=== PATIENT | female | born 1985 | race American Indian/Alaskan Native ===

== ENCOUNTER 2018-05-19 06:46 | Observation (INO) | payer OTHER ==
[2018-05-18 08:42] VITALS: BMI 22.7
[2018-05-19] MEDS ORDERED: Propofol 10 mg/ml Inj (20 ML) ONE ×2 (07:33→13:56)
[2018-05-19] MEDS ORDERED: ePHEDrine 50 mg/ml Inj ONE (07:35)
[2018-05-19] MEDS ORDERED: Midazolam 2 MG/2 ML VIAL ONE ×2 (07:35→13:56)
[2018-05-19] MEDS ORDERED: Rocuronium 10 mg/ml (5 ml) ONE ×2 (07:36→13:57)
[2018-05-19] MEDS ORDERED: Succinylcholine 200 mg/10 ml Inj IV ONE ×2 (07:36→13:57)
[2018-05-19] MEDS ORDERED: Lidocaine 4% (Laryng-O-Jet) Kit MM ONE ×2 (07:37→13:57)
[2018-05-19] MEDS: Bupivacaine HCl 0.5% PF (30 ml) Inj ONE ×2 (07:45→10:05)
[2018-05-19] MEDS ORDERED: Lactated Ringer's 1,000 ML IV ONE ×5 (07:46→10:10)
[2018-05-19 08:08] LABS: BASO % 0.7 % (0.0-2.0); EOS # 0.1 K/uL (0.0-0.7); EOS % 2.2 % (0.0-4.0); HEMOGLOBIN 11.1 g/dL (12.0-16.0); LYMPH # 2.4 K/uL (1.0-4.3); LYMPH % 41.8 % (20.0-40.0); MEAN CELL VOLUME 92.8 fl (81.0-99.0); MEAN CORPUSCULAR HEMOGLOBIN 30.1 pg (27.0-31.0); MEAN CORPUSCULAR HGB CONC 32.5 g/dL (33.0-37.0); MEAN PLATELET VOLUME 9.8 fl (7.2-11.7); MONO # 0.5 K/uL (0.0-0.8); MONO % 9.5 % (0.0-10.0); NEUT # 2.6 K/uL (1.8-7.0); NEUT % 45.8 % (50.0-75.0); NRBC % 0.1 % (0.0-0.0); RBC 3.7 Mil/uL (3.80-5.20); WHITE BLOOD COUNT 5.7 K/uL (4.8-10.8)
[2018-05-19] MEDS ORDERED: Dexamethasone 4 mg/1 ml ONE ×2 (09:56→14:53)
[2018-05-19] MEDS ORDERED: Desflurane Inhalation Anesthetic Liq (240 ml) ONE (10:09)
[2018-05-19] MEDS ORDERED: DiphenhydrAMINE 50 mg/ml Inj IVP PRN (13:16)
--- NOTE | 2018-05-19 13:20 | PCM.OP ---
Operative Report - Operative Report Date of Surgery/Procedure: 05/19/18 Time of Surgery/Procedure: 09:00 Surgeon: Dr. Lance Martínez Commercial Retoucher: Dr. Eligio Bateman Anesthesia/Sedation: general/Dr. Bain Pre-Operative Diagnosis: abdominal pain and endometriosis Post-Operative Diagnosis: same Indication for Surgery: as above Operative Findings: as above Procedure/Operation Description: 1-Excision perirectal endometriosis (Times two) 2-Excision rectal endomeritosis 3-Appendectomy Brief History: This 32 year woman was already brought to the OR by Dr. Bateman when he noted extensive intestinal involvement with endometriosis and he requested an intraoperative surgical assistance. Description of the Procedure: The patient had already been brought to the OR by Dr. Bateman (separate dictation). after taking control of the robotic console the fist lesion in the perirectal space was incised with electrocautery and using blunt and sharp dissection it was excised en-bloc and sent to pathology separately. The second lesion was excised in a similar fashion. The third lesion, which was exceedingly larger was excised in a similar fashion and these ere marked and sent to pathology separately. The appendix was then retracted anteriorly and the mesentery was dessicated with electocautery monopolar thermal energy to the base. The base was ligated with 3-0 endoloop, transected and sent to pathology separately. Hemostasis was demed adeqaute and the operation was then turned over to Dr. Bateman (separate dictation). Estimated Blood Loss: 100 cc Complications: none Specimen: 1-Perirectal endometriosis (times two) 2-Deep rectal endometriosis 3-Appendix Discharge & Condition: stable
[2018-05-19] MEDS ORDERED: Lactated Ringer's 1,000 ML IV SCH (13:30)
[2018-05-19] MEDS ORDERED: Oxycodone/Acetaminophen 5/325 mg Tab PO PRN (13:37)
[2018-05-19] MEDS: HYDROmorphone 0.5 mg/0.5 ml ISec IVP PRN ×5 (13:45→22:25)
[2018-05-19] MEDS ORDERED: Sodium Chloride 0.9% 1,000 ML IV SCH (13:45)
--- NOTE | 2018-05-19 15:37 | OP ---
PROCEDURE DATE: 05/19/18 SURGEON: Eligio Bateman MD EXPERIMENTAL TECHNICIAN: Lance Martínez MD ANESTHESIOLOGIST: MD Herminia Bain TYPE OF ANESTHESIA: General endotracheal. PREOPERATIVE DIAGNOSES: 1. Incapacitating pelvic pain. 2. Incapacitating abdominal pain. 3. Abnormal uterine bleeding. 4. History of pelvic endometriosis. 5. History of previously failed medical and surgical therapy. 6. Gastrointestinal and genitourinary symptoms. 7. Rule out interstitial cystitis. 8. History of severe endometriosis and pelvic adhesions 9: bilateral ovarian cysts POSTOPERATIVE DIAGNOSES: 1. Incapacitating pelvic pain. 2. Incapacitating abdominal pain. 3. Abnormal uterine bleeding. 4. History of pelvic endometriosis. 5. History of previously failed medical and surgical therapy. 6. History of severe endometriosis and pelvic adhesions. 7. Gastrointestinal and genitourinary symptoms. 8. bilateral ovarian endometriomas 9. Mild ureteral distention. 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 Exam under anesthesia. 2. Video assisted hysteroscopy. 3. Cystoscopy. 4. Bilateral ureteral catheterization and injection of IC-Green dye. 5. Robotic da Karo operative laparoscopy. 6. Treatment of endometriosis. 7. Excision of endometriosis. 8. Bilateral ureterolysis. 9. Bilateral ovariolysis. 10: bilateral ovarian cystectomy 11: bilateral temporary ovariopexy raccuia : appendectomy excision rectal endo to be dictated separately COMPLICATIONS: None. SAMPLES SENT: 1. Left Uterosacral l endometriosis. 2. Left periureteral endometriosis. 3. Right periureteral endometriosis. 4. Right uterosacral endometriosis. 5. Left and right ovarian fossa endometriosis. 6. Iliac endometriosis. 7. Posterior cervical endometriosis. 8. Rectal endometriosis, anterior. 9) Cul de sac endometriosis 10) right and left ovarian cyst 11) appendix INDICATION FOR THE PROCEDURE AND CONSENT: The patient had a long history of pelvic pain, dysmenorrhea, dyspareunia, abdominal pain, and bladder pain. The patient had been thoroughly evaluated and counseled regarding the pros and cons of the procedure, the reasonable alternatives, and possible complications. She understood and accepted the risks involved. Literature was provided to the patient. The patient was understanding and given her history and per surgical exam, she was at high risk in an average patient. She accepted all the risks involved, and all the questions had been answered to her satisfaction. FINDINGS OF SURGERY: Genitalia: Normal external genitalia, cervix without lesion and polyps. Hysteroscopy: Hysteroscopy shows a clear uterine cavity with no polyps or masses noticed. Cystoscopy: The cystoscopy was performed to rule out endometriosis and also any interstitial cystitis and also injury. The bladder was normal with no evidence of stone, trigonitis, or cystitis. A positive jet flow was identified in both ureters. Laparoscopy: The upper abdomen appeared to be normal. Gallbladder was normal. Liver edges appeared to be normal. Ascending colon and transverse were normal. There was evidence of adhesions, fibrosis, and endometriosis of the rectovaginal and pelvic sidewalls. Ovaries were enlarged with cysts and adherent to each other and to the back of the uterus. The appendix appeared to be abnormal and affected by endometriosis. Both fallopian tubes appeared to be patent, although there was evidence of inflammation on the serosal surface of both fallopian tubes, and there was slight conglutination of both fimbriated ends although they both appeared to be functional. There was also evidence of mild hydroureters. DESCRIPTION OF THE PROCEDURE: Initiation of the case: After adequate anesthesia was obtained, the patient was placed in the dorsal lithotomy position, and with extreme care, placement of the patient with hyperextension and hyperflexing of the hips. At this point, the patient was prepped and draped. The surgeon was gowned and gloved. A timeout was taken according to the hospital procedure and the procedure was started. At this point, we performed cystoscopy, bilateral ureteral catheterization. A cystoscope was inserted into the bladder under direct visualization and the bladder was visualized. The bladder was free of lesions and tumors. There was no evidence of interstitial cystitis, and there was only mild amount of trigonitis. At this point, both ureters were identified and appeared to be in their normal anatomical position. At this point, utilizing an open 5-Maori open-ended catheter, the left ureter was catheterized all the way to the distal ureter, and 5 mL of IC-Green was injected into this ureter. Similarly, the contralateral ureter was catheterized all the way to the distal ureter, and 5 mL of IC-Green was injected into the distal ureter. At this point, the stents were removed, and the cystoscope was removed, and the 16-Maori Degroot was inserted into the bladder. At this point, we proceeded with a hysteroscopy. A speculum was placed into vagina, and the anterior lip of the cervix was grasped. The cervix was dilated, and a hysteroscope was inserted into the cavity. The cavity appeared to be of normal size with no evidence of polyps, cysts, adenomyosis, or fibroids. At this point, we proceeded with placement of a trocar and docking of the da Karo Xi robot. The surgeon was re-gowned and gloved, and open laparoscopy was performed by making incision in the umbilicus and the fascia was incised. The peritoneum was entered in a blunt fashion, and the cannula was inserted under direct visualization. The abdomen was insufflated, and under direct visualization, three additional ports were inserted in the left upper quadrant, left mid quadrant, and right upper quadrant. At this point, the da Karo Xi robot was brought into the field and docked, and the instruments were inserted under direct visualization. All this with extreme care not to injure the bowel or another area. As per dictation, the upper abdomen appeared to be normal with no evidence of any lesions. At this point, we proceeded with a left ureterolysis. The ureter appeared to be dilated and was clearly identified utilizing IC-Green fluorescent technology. Anesthesia was made in the peritoneum at the top of the pelvic brim, and the incision was then carried down all the way opening the peritoneum all the way down from the pelvic brim, all the way down to the ovarian fossa, extending the incision below the ovary. It was a progressive dissection where the ureter was progressively lateralized and peritoneum was medialized, thus freeing the ureter all the way down to the cross of the uterine vessels. After this was done, the ureter was freed and lateralized, and a larger peritoneum which had been opened, was excised, and sent to pathology. At this point, with the aid of very slow process, I was able to elevate the ovary and proceed with ovariolysis. At this point, we proceeded with a left ovariolysis. The left ovary was adherent to the posterior aspect of the uterus. It was gently dissected in a step by step way. It was peeled off, the ovarian fossa, andan area of extensive fibrosis and endometriosis was exposed. the rleft ovary was then pexed to the abdominal wall and At this point, we proceeded with a right ureterolysis. The ureter was identified again utilizing fluorescent technology on the right hand side and retroperitoneal space was entered, and a full dissection was performed,entering the retroperitoneal space and dissecting the ureter, removing the ureter laterally and the peritoneum medially. A full dissection was performed all the way down to the ovarian fossa and the crossing of the uterine arteries. An area of peritoneum containing endometriosis was dissected and sent to Pathology. At this point, we proceeded with a right ovariolysis. The right ovary was adherent to the peritoneum. It was gently elevated progressively, and dissected off from the peritoneal area. All this done with extreme care to preserve vascularization to the ovary. the right ovary was then pexed to the abdominal wall and At this point, we proceeded with treatment of endometriosis and excision of endometriosis. On the left hand side, fibrosis, especially in the left ovarian fossa was excised. In a very progressive step by step fashion, we dissected off fibrosis containing endometriosis and freed up the whole area. The ureters which had been lateralized. Areas of fibrosis and endometriosis were also identified in the posterior cul-de-sac and in the rectovaginal space which was also affected with endometriosis and fibrosis. At this point, we proceeded with the excision of perirectal endometriosis. The rectovaginal area had significant fibrosis and additional endometriosis was dissected from the posterior aspect of the uterus, and the rectovaginal space was entered at the level of the peritoneal reflection. All this done making sure that no damage to the rectum was performed. At this point, endometriosis was also excised from the right uterosacral area which also was affected by fibrosis and endometriosis. At this point, we proceeded with left ovarian cystectomy the cyst wall was gently peeled fro m the ovary without damaging any vascular supply and with minimal use of coagulation. the cyst was set to pathology At this point, we proceeded with right ovarian cystectomy the cyst wall was gently peeled fro m the ovary without damaging any vascular supply and with minimal use of coagulation. the cyst was set to pathology At this point, it was checked for hemostasis and appeared to be excellent. Both fallopian tubes were in good condition and patent. . At this point the console was handed over to Dr. Martínez from General surgery who proceeded with excision perirectal endometriosis (Times two), excision rectal endomeritosis, appendectomy procedure. He will dictate that separately. After he was done we checked for hemostasis and organ integrity and all was normal. At this point, the da Karo Xi robot was removed. The abdomen was desufflated, and the incisions were closed in layers with 0 PDS for the fascia and 4-0 Monocryl for the skin. At the end of the procedure, all instrument counts were correct. The patient tolerated the procedure well and was taken to the recovery room in excellent condition. Bhavana RODRÍGUEZ, Eligio SAINI
[2018-05-19] MEDS: ceFAZolin IV 2 gm in Dextrose 2 GM/50 ML BAG IVPB SCH (17:22)
[2018-05-20] MEDS: ceFAZolin IV 2 gm in Dextrose 2 GM/50 ML BAG IVPB SCH ×2 (00:45→09:02)
[2018-05-20] MEDS: HYDROmorphone 0.5 mg/0.5 ml ISec IVP PRN (02:55)
[2018-05-20 07:41] LABS: HEMOGLOBIN 9.5 g/dL (12.0-16.0); MEAN CELL VOLUME 89.7 fl (81.0-99.0); MEAN CORPUSCULAR HEMOGLOBIN 29.4 pg (27.0-31.0); MEAN CORPUSCULAR HGB CONC 32.8 g/dL (33.0-37.0); RBC 3.23 Mil/uL (3.80-5.20); RED CELL DISTRIBUTION WIDTH 14.7 % (11.5-14.5); WHITE BLOOD COUNT 9.2 K/uL (4.8-10.8)
[2018-05-20 07:53] LABS: BLOOD UREA NITROGEN 7 mg/dl (7-17); CALCIUM 8.1 mg/dL (8.4-10.2); GFR NON-AFRICAN AMERICAN > 60
--- NOTE | 2018-05-20 09:12 | CP.PCM.PN ---
Subjective - Date & Time of Evaluation Date of Evaluation: 05/20/18 Time of Evaluation: 09:20 - Subjective Subjective: Patient complaining of pain, bloating, belching. Denies n/v. Not passing gas, has not voided since rousseau d/c'd Objective - Vital Signs/Intake and Output Vital Signs (last 24 hours): Temp Pulse Resp BP Pulse Ox 98.7 F 87 20 105/65 100 05/20/18 05:00 05/20/18 05:00 05/20/18 05:00 05/20/18 05:00 05/20/18 05:00 - Medications Medications: Current Medications Hydromorphone HCl (Dilaudid) 0.5 mg IVP Q10M PRN PRN Reason: Pain, moderate (4-7) Last Admin: 05/19/18 14:50 Dose: 0.5 mg Hydromorphone HCl (Dilaudid) 0.5 mg IVP Q4H PRN PRN Reason: Pain, severe (8-10) Last Admin: 05/20/18 02:55 Dose: 0.5 mg Lactated Ringer's (Lactated Ringer's) 1,000 mls @ 125 mls/hr IV .Q8H FIORDALIZA Last Admin: 05/19/18 15:30 Dose: 200 mls Cefazolin Sodium/Dextrose (Ancef Iv 2 Gm Duplex) 2 gm in 50 mls @ 50 mls/hr I VPB Q8H FIORDALIZA; Protocol Stop: 05/20/18 09:59 Last Admin: 05/20/18 09:02 Dose: 50 mls/hr Ondansetron HCl (Zofran Inj) 4 mg IVP Q6 PRN PRN Reason: Nausea/Vomiting Last Admin: 05/19/18 17:00 Dose: 4 mg Oxycodone/Acetaminophen (Percocet 5/325 Mg Tab) 1 tab PO Q4 PRN PRN Reason: Pain, moderate (4-7) Stop: 05/22/18 13:38 Last Admin: 05/20/18 09:11 Dose: 1 tab - Labs Labs: 05/20/18 07:20 05/20/18 07:20 - GI/Abdominal Exam GI & Abdominal Exam: Distended (mild distended, incisions intact, generalized tenderness), Guarding, Tenderness Assessment and Plan (1) Endometriosis Assessment & Plan: POD#1 s/p robotic assisted resection of endometriosis and appendectomy will add toradol and protonix encourage OOB, ambulation d/w Dr. Bateman, agrees with above addendum: by 2pm, patient is feeling much better, distension improving, pain now controlled, voided x 3. d/w Dr. Bateman, will d/c patient home, f/u 10-14 days call for appt, call for any increased pain, bleeding, difficulty voiding Status: Acute
[2018-05-20 09:22] VITALS: RESP 18
[2018-05-20] MEDS ORDERED: Pantoprazole 40 mg EC Tab PO SCH (09:30)
[2018-05-20 12:47] VITALS: BP 119/71; PULSE 76; TEMP 98.6; O2SAT 98
== END 2018-05-20 19:00 | disposition home or self-care (01) ==
LOC: H.OPSURG 06:46 → H.PEDS 13:44
PROVIDERS: ADMIT Obstetrics & Gynecology Reproductive Endocrinology; ATTEND Obstetrics & Gynecology Reproductive Endocrinology
DX: N80.0 Endometriosis of uterus (principal); N83.12 Corpus luteum cyst of left ovary; N83.11 Corpus luteum cyst of right ovary; N80.1 Endometriosis of ovary; N80.3 Endometriosis of pelvic peritoneum; N80.5 Endometriosis of intestine; N93.9 Abnormal uterine and vaginal bleeding, unspecified
CPT/HCPCS: 36415; 44970; 58563; 58662; 80048; 85025; 85027; 86850; 86900; 88304; 88305; 96365; 96366; 96372; 96375; C1729; G0378; J0330; J0690; J1100; J1170; J1885; J2001; J2250; J2405; J2704; J2765; J3010; J7030; J7120; S2900